=== PATIENT | female | born 1965 | race Caucasian/White ===

== ENCOUNTER → 2017-04-13 | Outpatient (CLI) | payer OTHER ==
--- NOTE | 2017-04-21 11:30 | MM ---
Reason for exam: screening (asymptomatic). Last mammogram was performed 1 year and 6 months ago. History: Patient is postmenopausal. Benign excisional biopsy of the right breast, 1999. Physical Findings: A clinical breast exam by your physician is recommended on an annual basis and results should be correlated with mammographic findings. MG Screening Mammo w CAD Bilateral CC and MLO view(s) were taken. Prior study comparison: October 27, 2015, mammogram, performed at [facility]. May 20, 2011, mammogram, performed at [facility]. There are scattered fibroglandular densities. There is chronic nodularity in the right breast. Left chest wall pacemaker generator. No significant changes when compared with prior studies. ASSESSMENT: Negative, BI-RAD 1 RECOMMENDATION: Routine screening mammogram of both breasts in 1 year.
== END | disposition home or self-care (01) ==
LOC: RADMAMWWP 14:21
PROVIDERS: ATTEND Internal Medicine
DX: Z12.31 Encounter for screening mammogram for malignant neoplasm of breast (principal)

== ENCOUNTER → 2017-04-27 | Outpatient (CLI) | payer OTHER ==
--- NOTE | 2017-04-27 15:47 | XR ---
EXAMINATION TYPE: XR chest 2V DATE OF EXAM: 04/27/2017 COMPARISON: NONE INDICATION: Coronary artery disease TECHNIQUE: Frontal and lateral views of the chest are obtained. FINDINGS: The heart size is normal. The pulmonary vasculature is normal. The lungs are clear. Pacemaker overlies left chest. IMPRESSION: 1. No acute pulmonary process.
--- NOTE | 2017-04-28 06:44 | US ---
EXAMINATION TYPE: US kidneys/renal and bladder DATE OF EXAM: 04/27/2017 COMPARISON: NONE CLINICAL HISTORY: R06.02 SOB,I25.10 Coronary artery disease. Chronic kidney disease stage III per ord er. EXAM MEASUREMENTS: Right Kidney: 8.2 x 4.2 x 4.2 cm Left Kidney: 7.9 x 3.7 x 3.0 cm Post Void Residual Volume: 6.2 mL Right Kidney: No hydronephrosis or masses seen, smaller than average size Left Kidney: very small for size and cortical thinning is noted Bladder: wnl Bilateral Jets seen: Yes Normal Post Void Residual: Yes Bladder is satisfactorily distended without intraluminal mass or wall thickening. Distal left jet is seen on images saved. Distal right jet is identified during real-time scanning per technologist. Afte r voiding minimal residual urine is present. Both kidneys are somewhat small in size with cortical thinning. Left has marked increased cortical ec hogenicity. No hydronephrosis or suspicious masses are seen on images saved. IMPRESSION: Findings consistent with chronic medical renal disease as there are small kidneys bilaterally. Left k idney is more affected than right. No hydronephrosis is noted bilaterally.
--- NOTE | 2017-04-28 17:14 | ECHOF ---
Referral Reason:R06.02 SOB, I25.10 Coronary Artery disease MEASUREMENTS -------- HEIGHT: 154.9 cm WEIGHT: 72.6 kg BP: RVIDd: 1.6 cm (< 3.3) IVSd: 0.9 cm (0.6 - 1.1) LVIDd: 4.6 cm (3.9 - 5.3) LVPWd: 0.9 cm (0.6 - 1.1) EDV(Teich): 100 ml IVSs: 1.0 cm LVIDs: 4.2 cm LVPWs: 1.1 cm ESV(Teich): 78 ml EF(Teich): 22 % %FS: 10 % SV(Teich): 22 ml LALs A4C: 4.3 cm LAAs A4C: 13.5 cm LAESV A-L A4C: 36 ml LAESV MOD A4C: 35 ml LALs A2C: 4.4 cm LAAs A2C: 9.5 cm LAESV A-L A2C: 18 ml LAESV MOD A2C: 16 ml LAESV(A-L): 25 ml LAESV Index (A-L): 14.76 ml/m EPSS: 1.6 cm MV E Sheng: 0.76 m/s MV DecT: 262 ms MV Dec [place]: 2.9 m/s MV A Sheng: 1.09 m/s MV E/A Ratio: 0.70 E/E': 22.98 E': 0.03 m/s AV Vmax: 1.33 m/s AV maxP.02 mmHg TR Vmax: 1.55 m/s TR maxP.58 mmHg RAP: 5.00 mmHg RVSP: 14.58 mmHg MV EF SLOPE: 60.62 mm/s (70 - 150) MV EXCURSION: 1.11 cm (> 18.000) FINDINGS -------- Sinus rhythm. This was a technically adequate study. The left ventricular size is normal. Left ventricular wall thickness is normal. Overall left vent ricular systolic function is severely impaired with, an EF between 25 - 30 %. Apical anterior LV wa ll motion is akinetic. Apical lateral LV wall motion is akinetic. Apical inferior LV wall motio n is akinetic. Apical septum LV wall motion is akinetic. Entire septum is severely hypokinetic. The right ventricle is normal in size and function. Normal LA size by volume 22+/-6 ml/m2. The right atrium is normal in size. Aortic valve is trileaflet and is mildly thickened. There is no evidence of aortic regurgitation. There is no evidence of aortic stenosis. The mitral valve leaflets are mildly thickened. Mild mitral annular calcification present. Mild m itral regurgitation is present. Trace tricuspid regurgitation present. Right ventricular systolic pressure is normal at < 35 mmHg. There is no evidence of pulmonary hypertension. The pulmonic valve was not well visualized. The aortic root size is normal. Normal inferior vena cava with normal inspiratory collapse consistent with estimated right atrial pre ssure of 5 mmHg. The pericardium is normal. There is a trivial pericardial effusion present. CONCLUSIONS -------- 1. Sinus rhythm. 2. This was a technically adequate study. 3. The left ventricular size is normal. 4. Left ventricular wall thickness is normal. 5. Overall left ventricular systolic function is severely impaired with, an EF between 25 - 30 %. 6. Apical anterior LV wall motion is akinetic. 7. Apical lateral LV wall motion is akinetic. 8. Apical inferior LV wall motion is akinetic. 9. Apical septum LV wall motion is akinetic. 10. Entire septum is severely hypokinetic. 11. Normal LA size by volume 22+/-6 ml/m2. 12. Aortic valve is trileaflet and is mildly thickened. 13. There is no evidence of aortic regurgitation. 14. There is no evidence of aortic stenosis. 15. The mitral valve leaflets are mildly thickened. 16. Mild mitral annular calcification present. 17. Mild mitral regurgitation is present. 18. Trace tricuspid regurgitation present. 19. Right ventricular systolic pressure is normal at < 35 mmHg. 20. There is no evidence of pulmonary hypertension. 21. The pulmonic valve was not well visualized. 22. The aortic root size is normal. 23. There is a trivial pericardial effusion present. EVISCERATOR: Nathanael Dean RDCS
== END | disposition home or self-care (01) ==
LOC: RADECHMAIN 14:22
PROVIDERS: ATTEND Internal Medicine
DX: I34.0 Nonrheumatic mitral (valve) insufficiency (principal); I25.10 Atherosclerotic heart disease of native coronary artery without angina pectoris; I35.8 Other nonrheumatic aortic valve disorders; Z88.5 Allergy status to narcotic agent; Z91.041 Radiographic dye allergy status; Z88.8 Allergy status to other drugs, medicaments and biological substances
CPT/HCPCS: 71046; 76770; 93306